=== PATIENT | female | born 1995 | race African-American/Black ===

== ENCOUNTER 2021-09-15 23:08 | Emergency (ER) | payer BC, OTHER ==
[~2021-09-15] VITALS: Ht 157.5 cm; Wt 70.3 kg
[2021-09-15 23:08] VITALS: BP 146/85
== END 2021-09-16 05:05 | disposition left against medical advice (07) ==
LOC: ER 23:08
DX: M25.572 Pain in left ankle and joints of left foot (principal); W01.0XXA Fall on same level from slipping, tripping and stumbling without subsequent striking against object, initial encounter; Y93.89 Activity, other specified; Y92.89 Other specified places as the place of occurrence of the external cause; Y99.8 Other external cause status
CPT/HCPCS: 73610; 81025